=== PATIENT | female | born 1940 | race Caucasian/White ===

== ENCOUNTER 2018-01-12 17:05 | Emergency (ER) | payer OTHER ==
[~2018-01-12] VITALS: Ht 162.6 cm; Wt 78.0 kg
[2018-01-12] MEDS ORDERED: QUINAPRIL 20 MG20 MG PO (18:34)
[2018-01-12] MEDS ORDERED: SYNTHROID25 MC1 PO (18:34)
[2018-01-12 20:00] VITALS: BP 158/85
== END 2018-01-12 20:00 | disposition home or self-care (01) ==
LOC: ER 17:05
DX: S40.011A Contusion of right shoulder, initial encounter (principal); S00.83XA Contusion of other part of head, initial encounter; S80.12XA Contusion of left lower leg, initial encounter; S80.11XA Contusion of right lower leg, initial encounter; S09.90XA Unspecified injury of head, initial encounter; Z88.1 Allergy status to other antibiotic agents; Z88.2 Allergy status to sulfonamides; W10.9XXA Fall (on) (from) unspecified stairs and steps, initial encounter; Y93.89 Activity, other specified; Y92.89 Other specified places as the place of occurrence of the external cause; Y99.8 Other external cause status